=== PATIENT | male | born 1960 | race Caucasian/White ===

== ENCOUNTER 2017-12-17 17:17 | Emergency (ER) | payer OTHER ==
[~2017-12-17] VITALS: Ht 175.3 cm; Wt 81.8 kg
[~2017-12-17 17:17] MED LIST: NIFEDICAL XL30 MG PO; PERCOCET 5/31 TABLET PO; PRILOSEC20 MG PO; SALINE NASAL SP45 ML BOTH NARES; TYLENOL REGULA325 MG PO; ZYRTEC10 M2 PO
[2017-12-17 18:04] LABS: HEMATOCRIT 24.5 % (38.0-50.0); HEMOGLOBIN 8.4 G/DL (12.5-16.6); MCH 26.5 PG (29.0-34.0); MCHC 34.3 G/DL (30.0-36.0); MCV 77.3 FL (86-99); PLATELET COUNT 466 K/uL (156-360); RBC DIS.WIDTH-SD 39.8 % (39-53); RED BLOOD COUNT 3.17 M/uL (4.00-5.50); WHITE BLOOD COUNT 14.7 K/uL (4.1-10.2)
[2017-12-17 18:19] LABS: CHLORIDE 102 mEq/L (99-109); INTER. NORMALIZED RATIO 1.5; POTASSIUM 4.5 mEq/L (3.7-5.4)
[2017-12-17 18:20] LABS: SODIUM 136 mEq/L (136-147)
[2017-12-17 18:21] LABS: GLUCOSE 93 mg/dL (70-99)
[2017-12-17 18:25] LABS: CREATININE 1.3 mg/dL (0.6-1.3); GFR ESTIMATE (CALCULATED) > 59 mL/min/ (58.99-99999)
[2017-12-17 18:26] LABS: UREA NITROGEN (BUN) 23 mg/dL (9-23)
[2017-12-17] MEDS ORDERED: KEFLEX500 MG PO (19:53)
[2017-12-17] MEDS ORDERED: ULTRAM50 MG PO (19:54)
[2017-12-17 20:40] VITALS: BP 138/74
== END 2017-12-17 20:40 ==
LOC: EME 17:17
PROVIDERS: Physician Assistant
DX: L03.116 Cellulitis of left lower limb (principal)
CPT/HCPCS: 80048; 85027; 85610; 93971; 99281; 99284; J0696